=== PATIENT | male | born 1975 | race Caucasian/White ===

== ENCOUNTER 2024-03-18 07:45 | Day surgery (SDC) | payer OTHER ==
[~2024-03-18 07:45] MED LIST: BUPIVACAINE 0.5 % PF 150 MG/30 ML VIAL ONE; methylPREDNISolone ACETATE 80 MG/ML VIAL ONE
[2024-03-18] MEDS ORDERED: EPINEPHRINE (1:1000) 1 MG/ML AMPUL ONE (08:50)
[2024-03-18] MEDS ORDERED: MIDAZOLAM HCL 2 MG/2ML VIAL ONE (09:09)
[2024-03-18] MEDS ORDERED: FENTANYL PF 100MCG/2ML AMPUL ONE ×2 (09:09→10:10)
== END 2024-03-18 11:18 | disposition home or self-care (01) ==
LOC: DS 07:45
PROVIDERS: ATTEND Student in an Organized Health Care Education/Training Program
DX: S83.241A Other tear of medial meniscus, current injury, right knee, initial encounter (principal); X58.XXXA Exposure to other specified factors, initial encounter; Y93.89 Activity, other specified; Y92.89 Other specified places as the place of occurrence of the external cause; Y99.8 Other external cause status; M94.261 Chondromalacia, right knee; I10 Essential (primary) hypertension; Z98.890 Other specified postprocedural states; Z79.899 Other long term (current) drug therapy
CPT/HCPCS: 29881; J0690; J3490 ×2; J1100; J2704; J0171; J3010 ×2; J0330; J2405; J7030; J2250; A6253; A4217; J1040